=== PATIENT | female | born 1985 | race African-American/Black ===

== ENCOUNTER 2017-06-08 16:46 | Emergency (ER) | payer MEDICAID ==
[~2017-06-08] VITALS: Ht 162.6 cm; Wt 80.0 kg
[~2017-06-08 16:46] MED LIST: HYDR-3533 PO; METR-1 PO
[2017-06-08 16:50] VITALS: BP 198/94; PULSE 85; RESP 14; TEMP 98.6; O2SAT 99
[2017-06-08 18:37] VITALS: BP 204/93; PULSE 74; RESP 18; TEMP 98.4; O2SAT 99
--- NOTE | 2017-06-08 18:40 | PD ---
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 Pain is cramping. Intermittent. Moderate. Patient states that her menstrual cycle ended May 26 this is not her typical menstrual cycle. Denies chance of . Denies fever or chills. No urinary symptoms. No other symptoms to report. PFSH Past Medical History Asthma: Yes (as a child) Diminished Hearing: No Reproductive: Yes (TRICHOMONAS) Immunizations Current: No Tetanus Vaccination: Unknown Influenza Vaccination: No ?: Not LMP: 05/26/17 : 2 Para: 1 Miscarriage: 1 Past Surgical History Surgical History: No Previous Surgery Section: Yes Social History Alcohol Use: Yes (OCCASIONALLY) Tobacco Use: Yes (1 DAILY) Substance Use: No Allergies-Medications (Allergen,Severity, Reaction): Coded Allergies: erythromycin base (Unverified Allergy, Severe, Rash, 06/08/17) penicillin G (Unverified Allergy, Severe, Rash, 06/08/17) Reported Meds & Prescriptions Reported Meds & Active Scripts Active Flagyl (Metronidazole) 500 Mg Tab 500 Mg PO BID 7 Days Review of Systems Except as stated in HPI: all other systems reviewed are Neg Physical Exam Narrative GENERAL: Well-nourished female patient, in no acute distress SKIN: Focused skin assessment warm/dry. HEAD: Atraumatic. Normocephalic. EYES: Pupils equal and round. No scleral icterus. No injection or drainage. ENT: No nasal bleeding or discharge. Mucous membranes pink and moist. NECK: Trachea midline. No JVD. CARDIOVASCULAR: Regular rate and rhythm. No murmur appreciated. RESPIRATORY: No accessory muscle use. Clear to auscultation. Breath sounds equal bilaterally. GASTROINTESTINAL: Abdomen soft, distended. Suprapubic tenderness to palpation.. Hepatic and splenic margins not palpable. GENITOURINARY: Normal external genitalia without lesions or erythema. Vaginal vault with a watery a brown discharge. Os was closed similar drainage. No cervical motion tenderness. Uterus nontender and nonenlarged. Bilateral adnexa nontender without masses. MUSCULOSKELETAL: No obvious deformities. No clubbing. No cyanosis. No edema. NEUROLOGICAL: Awake and alert. No obvious cranial nerve deficits. Motor grossly within normal limits. Normal speech. Data Data Last Documented VS Vital Signs Date Time Temp Pulse Resp B/P (MAP) Pulse Ox O2 Delivery O2 Flow Rate FiO2 06/08/17 18:37 98.4 74 18 204/93 (130) 99 Room Air Orders Orders Urinalysis - C+S If Indicated (06/08/17 18:49) Ed Urine Pregnancytest Poc (06/08/17 18:49) Wet Prep Profile (06/08/17 18:49) Gc And Chlamydia Pcr (06/08/17 18:49) Labs Laboratory Tests Test 06/08/17 18:30 06/08/17 19:30 Urine Color LIGHT-YELLOW Urine Turbidity CLEAR Urine pH 7.0 Urine Specific [place] 1.008 Urine Protein NEG mg/dL Urine Glucose (UA) NEG mg/dL Urine Ketones NEG mg/dL Urine Occult Blood MOD Urine Nitrite NEG Urine Bilirubin NEG Urine Urobilinogen LESS THAN 2.0 MG/DL Urine Leukocyte Esterase NEG Urine RBC 1 /hpf Urine WBC 3 /hpf Urine Squamous Epithelial Cells 1 /hpf Microscopic Urinalysis Comment CULT NOT INDICATED Clue Cells (Wet Prep) PRESENT Vaginal Trichomonas (Wet Prep) NONE SEEN Vaginal Yeast (Wet Prep) NONE SEEN MDM Medical Decision Making Medical Screen Exam Complete: Yes Emergency Medical Condition: Yes Medical Record Reviewed: Yes Differential Diagnosis BV versus STD versus UTI versus PID Narrative Course 32-year-old female presents to emergency department for evaluation of suprapubic pain and vaginal bleeding. Patient has a brown henry discharge noted of her vaginal vault. Laboratory Tests Test 06/08/17 18:30 06/08/17 19:30 Urine Color LIGHT-YELLOW Urine Turbidity CLEAR Urine pH 7.0 Urine Specific [place] 1.008 Urine Protein NEG mg/dL Urine Glucose (UA) NEG mg/dL Urine Ketones NEG mg/dL Urine Occult Blood MOD Urine Nitrite NEG Urine Bilirubin NEG Urine Urobilinogen LESS THAN 2.0 MG/DL Urine Leukocyte Esterase NEG Urine RBC 1 /hpf Urine WBC 3 /hpf Urine Squamous Epithelial Cells 1 /hpf Microscopic Urinalysis Comment CULT NOT INDICATED Clue Cells (Wet Prep) PRESENT Vaginal Trichomonas (Wet Prep) NONE SEEN Vaginal Yeast (Wet Prep) NONE SEEN Patient is treated for trichomonas. She'll be treated empirically for gonorrhea and chlamydia. She is counseled states sex practices and agrees to return immediately with any acute worsening symptoms. Diagnosis Primary Impression: Bacterial vaginosis Referrals: Cardiac Rehabilitation Specialist Primary Care Physician Patient Instructions: Bacterial Vaginosis (ED), General Instructions Additional Instructions: Follow-up with a aws architect Return immediately with any acute worsening of symptoms Med/Other Pt SpecificInfo: Prescription(s) given Scripts Metronidazole (Flagyl) 500 Mg Tab 500 MG PO BID for Infection for 7 Days, #14 TAB 0 Refills Prov: Staci Wang 06/08/17 Disposition: 01 DISCHARGE HOME Condition: Stable Staci Wang Jun 08, 2017 18:40
[2017-06-08 19:18] LABS: BLOOD, URINE MOD (NEG); GLUCOSE,URINE NEG (NEG); KETONE, URINE NEG (NEG); NITRITE,URINE NEG (NEG); SQUAMOUS EPITHELIAL CELL URINE 1 /hpf (0-5); URINE COLOR LIGHT-YELLOW (YELLW/STRAW)
[2017-06-08 19:20] LABS: COMMENT (UR) CULT NOT INDICATED; CULTURE IF INDICATED CULT NOT INDICATED
[2017-06-08] MEDS ORDERED: METR-1 PO (20:07)
[2017-06-08] MEDS ORDERED: AZITHROMYCIN 250 MG TAB PO ONE (20:15)
[2017-06-08] MEDS ORDERED: LIDOCAINE HCL 1% 50 ML VIAL XX ONE (20:15)
[2017-06-08] MEDS ORDERED: cefTRIAXone 250 MG VIAL IM ONE (20:15)
[2017-06-08 23:27] LABS: CHLAMYDIA PCR NOT DETECTED (NOT DETECT); NEISSERIA PCR NOT DETECTED (NOT DETECT)
== END 2017-06-08 20:45 | disposition home or self-care (01) ==
LOC: NEPD 16:46
DX: N76.0 Acute vaginitis (principal)
CPT/HCPCS: 81001; 84703; 87210; 87491; 87591; 96372; 99284; J0696

== ENCOUNTER 2017-06-13 15:33 | Observation (INO) | payer MEDICAID ==
[~2017-06-13] VITALS: Ht 162.6 cm; Wt 85.0 kg
[2017-06-13] VITALS (9 sets, daily range): BP systolic 167–233; BP diastolic 80–106; PULSE 66–77; RESP 14–18; TEMP 98.4–99; O2SAT 97–100
[~2017-06-13 15:33] MED LIST changes: -HYDR-3533 PO
--- NOTE | 2017-06-13 15:47 | PD ---
Physical Exam Date Seen by Provider: Jun 13, 2017 Time Seen by Provider: 15:46 Narrative 32 yo female here for evaluation of chest pressure. has had it since 2 today. Not getting better. Sharp. Some SOB. No cardiac history on patient. BP highly elevated. Vitals show hypertension in the 200s systolic. Awaiting bed placement. Data Data Last Documented VS Vital Signs Date Time Temp Pulse Resp B/P (MAP) Pulse Ox O2 Delivery O2 Flow Rate FiO2 06/13/17 15:35 98.4 76 14 233/106 (148) 97 Orders Orders Electrocardiogram (06/13/17 15:45) Chest, Single Ap (06/13/17 ) MDM Medical Record Reviewed: Yes Supervised Visit with YOANDY: No Henry Wilkes Jun 13, 2017 15:47
[2017-06-13 16:26] LABS: AUTOMATED NEUTROPHIL # 6.8 TH/MM3 (1.8-7.7); BASOPHIL # 0.1 TH/MM3 (0-0.2); BASOPHIL % 0.6 % (0.0-2.0); EOSINOPHIL # 0.2 TH/MM3 (0-0.4); EOSINOPHIL % 1.9 % (0.0-4.0); HEMATOCRIT 33.4 % (35.0-46.0); HEMO FLAGS DIFF FINAL; LYMPH % 25.6 % (9.0-44.0); LYMPHOCYTE # 2.7 TH/MM3 (1.0-4.8); MEAN CORPUSCULAR HEMOGLOBIN 21.1 PG (27.0-34.0); MEAN CORPUSCULAR HGB CONC 31.5 % (32.0-36.0); NEUT % 64.9 % (16.0-70.0); PLATELET COUNT 418 TH/MM3 (150-450); RED BLOOD COUNT 4.98 MIL/MM3 (4.00-5.30); RED CELL DISTRIBUTION WIDTH 17.8 % (11.6-17.2); WHITE BLOOD COUNT 10.5 TH/MM3 (4.0-11.0)
[2017-06-13 16:54] LABS: ANION GAP 8 MEQ/L (5-15); BICARBONATE 22.5 MEQ/L (21.0-32.0); BLOOD UREA NITROGEN 9 MG/DL (7-18); CHLORIDE 107 MEQ/L (98-107); GLOMERULAR FILTRATION RATE 119 ML/MIN (>89); MAGNESIUM 2.3 MG/DL (1.5-2.5); POTASSIUM 3.4 MEQ/L (3.5-5.1); SODIUM (NA) 137 MEQ/L (136-145)
[2017-06-13 16:58] LABS: CREATINE KINASE 150 U/L (26-192)
[2017-06-13 17:10] LABS: CKMB 1.2 NG/ML (0.5-3.6)
--- NOTE | 2017-06-13 17:12 | RADRPT ---
EXAM DATE/TIME: 06/13/2017 16:22 [facility] COMPARISON: No previous studies available for comparison. INDICATIONS : Shortness of breath. MEDICAL HISTORY : None. SURGICAL HISTORY : None. ENCOUNTER: Initial ACUITY: 1 day PAIN SCORE: 0/10 LOCATION: Bilateral chest FINDINGS: PA and lateral views of the chest demonstrate the lungs to be symmetrically aerated without evidence of mass, infiltrate or effusion. The cardiomediastinal contours are unremarkable. Osseous structure s are intact. CONCLUSION: No acute disease. Tom Wright MD on June 13, 2017 at 17:10 Board Certified Radiologist. This report was verified electronically.
[2017-06-13] MEDS ORDERED: ASPIRIN 325 MG TAB PO ONE (17:45)
[2017-06-13] MEDS ORDERED: NITROGLYCERIN 0.4 MG SL 25 TABS/BTL SL ONE ×2 (17:45→19:00)
--- NOTE | 2017-06-13 17:47 | PD ---
HPI Chief Complaint: Chest Pain Time Seen by Provider: 17:33 Travel History International Travel<30 days: No Contact w/Intl Traveler<30days: No Traveled to known affect area: No History of Present Illness HPI 32-year-old female presents with central chest pressure that feels like a heaviness that is been present for the past day or so. She denies any associated symptoms with this. She denies recurrent history of this. She states she has been having elevated blood pressure readings for the past 10 years but her primary care physician did not want to start her on medication and just wanted to monitor it and she currently doesn't have a doctor at this time. She states she did not take an aspirin yet today. She denies prior cardiac workup. Quality is pressure. Severity is moderate. She denies specific modifying factors. Patient denies using control, long recent travel or PE risk factors such as family history or personal history of blood clots PFSH Past Medical History Medical History: Denies Significant Hx Asthma: Yes (as a child) Diminished Hearing: No Hypertension: Yes (elevated blood pressure for multiple years) Immunizations Current: No ?: Not LMP: 05/26/17 : 2 Para: 1 Miscarriage: 1 Past Surgical History Section: Yes Family History Family Myocardial Infarction: No Social History Alcohol Use: Yes (OCCASIONALLY) Tobacco Use: No (patient denies cigarette use to me) Substance Use: Yes (patient notes marijuana, denies IV drug abuse or cocaine) Allergies-Medications (Allergen,Severity, Reaction): Coded Allergies: erythromycin base (Unverified Allergy, Severe, Rash, 06/08/17) penicillin G (Unverified Allergy, Severe, Rash, 06/13/17) Reported Meds & Prescriptions Reported Meds & Active Scripts Active Flagyl (Metronidazole) 500 Mg Tab 500 Mg PO BID 7 Days Review of Systems Except as stated in HPI: all other systems reviewed are Neg Physical Exam Narrative GENERAL: Well-nourished, well-developed patient. SKIN: Warm and dry. HEAD: Normocephalic and atraumatic. EYES: No injection or drainage. ENT: No nasal drainage noted. NECK: Supple, trachea midline. CARDIOVASCULAR: Regular rate and rhythm RESPIRATORY: Breath sounds equal bilaterally. No accessory muscle use. GASTROINTESTINAL: Abdomen soft, non-tender, nondistended. EXTREMITIES: No edema. NEUROLOGICAL: Awake and alert. Motor and sensory grossly within normal limits. Normal speech. Data Data Last Documented VS Vital Signs Date Time Temp Pulse Resp B/P (MAP) Pulse Ox O2 Delivery O2 Flow Rate FiO2 06/13/17 17:58 71 18 186/103 (130) 100 Room Air 06/13/17 15:35 98.4 198/96 on recheck Orders Orders Electrocardiogram (06/13/17 15:45) Basic Metabolic Panel (Bmp) (06/13/17 16:05) Ckmb (Isoenzyme) Profile (06/13/17 16:05) Complete Blood Count With Diff (06/13/17 16:05) Magnesium (Mg) (06/13/17 16:05) Troponin I (06/13/17 16:05) Lipase (06/13/17 16:05) Chest, Pa & Lat (06/13/17 ) CKMB (06/13/17 16:16) CKMB% (06/13/17 16:16) Aspirin (Aspirin) (06/13/17 17:45) Nitroglycerin Sl (Nitrostat Sl) (06/13/17 17:45) Admit Order (Ed Use Only) (06/13/17 18:24) Labs Laboratory Tests Test 06/13/17 16:16 White Blood Count 10.5 TH/MM3 Red Blood Count 4.98 MIL/MM3 Hemoglobin 10.5 GM/DL Hematocrit 33.4 % Mean Corpuscular Volume 67.0 FL Mean Corpuscular Hemoglobin 21.1 PG Mean Corpuscular Hemoglobin Concent 31.5 % Red Cell Distribution Width 17.8 % Platelet Count 418 TH/MM3 Mean Platelet Volume 7.6 FL Neutrophils (%) (Auto) 64.9 % Lymphocytes (%) (Auto) 25.6 % Monocytes (%) (Auto) 7.0 % Eosinophils (%) (Auto) 1.9 % Basophils (%) (Auto) 0.6 % Neutrophils # (Auto) 6.8 TH/MM3 Lymphocytes # (Auto) 2.7 TH/MM3 Monocytes # (Auto) 0.7 TH/MM3 Eosinophils # (Auto) 0.2 TH/MM3 Basophils # (Auto) 0.1 TH/MM3 CBC Comment DIFF FINAL Differential Comment Blood Urea Nitrogen 9 MG/DL Creatinine 0.69 MG/DL Random Glucose 90 MG/DL Calcium Level 8.9 MG/DL Magnesium Level 2.3 MG/DL Sodium Level 137 MEQ/L Potassium Level 3.4 MEQ/L Chloride Level 107 MEQ/L Carbon Dioxide Level 22.5 MEQ/L Anion Gap 8 MEQ/L Estimat Glomerular Filtration Rate 119 ML/MIN Total Creatine Kinase 150 U/L Creatine Kinase MB 1.2 NG/ML Troponin I LESS THAN 0.02 NG/ML Lipase 117 U/L MDM Medical Decision Making Medical Screen Exam Complete: Yes Emergency Medical Condition: Yes Medical Record Reviewed: Yes (past history confirmed) Interpretation(s) CBC & BMP Diagram 06/13/17 16:16 Calcium Level 8.9, Magnesium Level 2.3 Last 24 hours Impressions Chest X-Ray 06/13/17 0000 Signed Impressions: Service Date/Time: Tuesday, June 13, 2017 16:22 - CONCLUSION: No acute disease. Tom Wright MD EKG is sinus rhythm at [address] segment elevation or depression or consecutive T-wave inversion Differential Diagnosis Musculoskeletal, gastritis, cardiac, hypertensive urgency Narrative Course Blood work, EKG, chest x-ray reviewed from protocol ordered. Initial testing negative. Will order aspirin and nitroglycerin and patient agrees to observation Labs without emergent process, agrees to observation Diagnosis Primary Impression: Chest pain Qualified Codes: R07.9 - Chest pain, unspecified Admitting Information Admitting Physician Requests: Observation Minnie Serrano MD Jun 13, 2017 17:47
[2017-06-13] MEDS ORDERED: SODIUM CHLORIDE 0.9% FLUSH 10 ML FLUSH IV FLUSH PRN (18:45)
[2017-06-13 19:42] LABS: CREATINE KINASE 185 U/L (26-192)
[2017-06-13 22:59] LABS: CREATINE KINASE 148 U/L (26-192)
[2017-06-13] MEDS ORDERED: cloNIDine HCL 0.2 MG TAB PO ONE (23:45)
[2017-06-13] MEDS ORDERED: cloNIDine HCL 0.2 MG TAB PO PRN (23:45)
[2017-06-14] VITALS (7 sets, daily range): BP systolic 110–179; BP diastolic 56–86; PULSE 62–72; RESP 17–18; TEMP 98.4–98.9; O2SAT 97–100
[2017-06-14] MEDS: SODIUM CHLORIDE 0.9% FLUSH 10 ML FLUSH IV FLUSH SCH ×2 (00:21→08:45)
--- NOTE | 2017-06-14 11:06 | HHI.DCPOC ---
Discharge Care Plan Diagnosis: (1) Chest pain Goals to Promote Your Health FOLLOW LOW SODIUM DIET. MONITOR ANR RECORD BLOOD PRESSURE READINGS AND FOLLOW UP WITH PRIMARY CARE PHYSICIAN. * To prevent worsening of your condition and complications * To maintain your health at the optimal level Directions to Meet Your Goals Take your medications as prescribed Follow your dietary instruction Follow activity as directed Keep your appointments as scheduled Take your immunizations and boosters as scheduled If your symptoms worsen call your PCP, if no PCP go to Urgent Care Center or Emergency Room Smoking is Dangerous to Your Health. Avoid second hand smoke Call the 24-hour hour crisis hotline for domestic abuse at Barry Gentile Jun 14, 2017 11:05
--- NOTE | 2017-06-14 12:13 | HHI.HP ---
HPI Primary Care Physician No Primary Care Physician Chief Complaint Chest pain History of Present Illness This is a 32-year-old female that presents to ED via private vehicle complaining of a chest tightness that began yesterday while she was at work. She checked her blood pressure was to not of her 17. Is a left side of her chest. Last about 3 hours. She never had this before. Denies history of hypertension. Denies any recent illnesses. Denies fevers or chills. States she adds a lot of salt to her food also believe she eats foods it already having a lot of salt in them. Review of Systems General: Patient denies fevers, chills recent, and recent travel HEENT: Patient denies headache, sore throat, difficulty swallowing. Cardiovascular: Has the chest discomfort as mentioned above. Denies sensation of heart beating rapidly or irregularly. No syncope. Denies diaphoresis. Respiratory: Denies shortness of breath or inspirational chest discomfort. Denies coughing wheezing or hemoptysis. GI: Patient denies nausea, vomiting, diarrhea, abdominal pain, bloody stools. Musculoskeletal: Patient denies joint pain or edema. Denies calf pain or edema. Neurovascular: Patient denies numbness, tingling, weakness in extremities. Denies headache. Endocrine: Denies polyuria and polydipsia. Hematologic: Denies easy bruising. Skin: Denies rash or itching. Past Family Social History Allergies: Coded Allergies: erythromycin base (Unverified Allergy, Severe, Rash, 06/13/17) penicillin G (Unverified Allergy, Severe, Rash, 06/13/17) Past Medical History Denies hypertension, hyperlipidemia, diabetes, and known CAD. Past Surgical History Noncontributory. Reported Medications Reported Meds & Active Scripts Active Flagyl (Metronidazole) 500 Mg Tab 500 Mg PO BID 7 Days Family History Denies family history of CAD. Social History Denies smoking. Denies alcohol. Occasional marijuana. Physical Exam Vital Signs Vital Signs Date Time Temp Pulse Resp B/P (MAP) Pulse Ox O2 Delivery O2 Flow Rate FiO2 06/14/17 11:18 152/86 (108) 06/14/17 10:24 179/85 (116) 06/14/17 08:11 64 06/14/17 07:12 98.4 66 18 134/75 (94) 100 10/11/17 04:17 62 06/14/17 03:16 98.9 62 17 110/56 (74) 97 06/14/17 00:46 72 06/13/17 23:15 99.0 72 17 172/92 (118) 100 06/13/17 22:21 77 06/13/17 22:14 99 06/13/17 20:28 98.7 72 17 190/92 (124) 100 06/13/17 20:18 06/13/17 20:15 66 18 167/80 (109) 100 Room Air 06/13/17 19:00 66 174/106 (128) 06/13/17 18:30 68 198/96 (130) 06/13/17 17:58 71 18 186/103 (130) 100 Room Air 06/13/17 17:27 99 Room Air 06/13/17 15:35 98.4 76 14 233/106 (148) 97 Physical Exam GENERAL: This is a well-nourished, well-developed patient, in no apparent distress. Patient speaks in clear complete sentences. Patient is pleasant. HEENT: Head is atraumatic and normocephalic. Neck is supple without lymphadenopathy and trachea is midline. No JVD or carotid bruits. CARDIOVASCULAR: Regular rate and rhythm without murmurs, gallops, or rubs. RESPIRATORY: Clear to auscultation. Breath sounds equal bilaterally. No wheezes , rales, or rhonchi. Chest wall is nontender. No use of accessory muscles. GASTROINTESTINAL: Abdomen is nontender, nondistended. Abdomen soft. No obvious pulsatile mass or bruit. No CVA tenderness. Strong femoral pulses bilaterally. Normal bowel sounds in all quadrants. MUSCULOSKELETAL: Patient is moving upper and lower extremities freely. No calf tenderness or edema, no Homans sign. Strong pulses in upper and lower extremities. NEUROLOGICAL: Patient is alert and oriented. Cranial nerves 2-12 are grossly intact. No focal deficits and speech is clear. SKIN: No rash and turgor is normal. Laboratory Laboratory Tests Test 06/13/17 16:16 06/13/17 18:50 06/13/17 22:05 White Blood Count 10.5 Red Blood Count 4.98 Hemoglobin 10.5 Hematocrit 33.4 Mean Corpuscular Volume 67.0 Mean Corpuscular Hemoglobin 21.1 Mean Corpuscular Hemoglobin Concent 31.5 Red Cell Distribution Width 17.8 Platelet Count 418 Mean Platelet Volume 7.6 Neutrophils (%) (Auto) 64.9 Lymphocytes (%) (Auto) 25.6 Monocytes (%) (Auto) 7.0 Eosinophils (%) (Auto) 1.9 Basophils (%) (Auto) 0.6 Neutrophils # (Auto) 6.8 Lymphocytes # (Auto) 2.7 Monocytes # (Auto) 0.7 Eosinophils # (Auto) 0.2 Basophils # (Auto) 0.1 CBC Comment DIFF FINAL Differential Comment Blood Urea Nitrogen 9 Creatinine 0.69 Random Glucose 90 Calcium Level 8.9 Magnesium Level 2.3 Sodium Level 137 Potassium Level 3.4 Chloride Level 107 Carbon Dioxide Level 22.5 Anion Gap 8 Estimat Glomerular Filtration Rate 119 Total Creatine Kinase 150 185 148 Creatine Kinase MB 1.2 1.0 1.0 Troponin I LESS THAN 0.02 LESS THAN 0.02 LESS THAN 0.02 Lipase 117 Result Diagram: 06/13/17 1616 06/13/17 1616 Imaging Last 48 hours Impressions Chest X-Ray 06/13/17 0000 Signed Impressions: Service Date/Time: Tuesday, June 13, 2017 16:22 - CONCLUSION: No acute disease. Tom Wright MD Course EKGs are sinus rhythm without significant ST segment depressions or elevations. Caprini VTE Risk Assessment Caprini VTE Risk Assessment: No/Low Risk (score <= 1) Caprini Risk Assessment Model Point Value = 1 Point Value = 2 Point Value = 3 Point Value = 5 Age 41-60 Minor surgery BMI > 25 kg/m2 Swollen legs Varicose veins or History of unexplained or recurrent spontaneous Oral contraceptives or hormone replacement Sepsis (< 1 month) Serious lung disease, including pneumonia (< 1 month) Abnormal pulmonary function Acute myocardial infarction Congestive heart failure (< 1 month) History of inflammatory bowel disease Medical patient at bed rest Age 61-74 Arthroscopic surgery Major open surgery (> 45 min) Laparoscopic surgery (> 45 min) Malignancy Confined to bed (> 72 hours) Immobilizing plaster cast Central venous access Age >= 75 History of VTE Family history of VTE Factor V Leiden Prothrombin [id number] Lupus anticoagulant Anticardiolipin antibodies Elevated serum homocysteine Heparin-induced thrombocytopenia Other congenital or acquired thrombophilia Stroke (< 1 month) Elective arthroplasty Hip, pelvis, or leg fracture Acute spinal cord injury (< 1 month) Prophylaxis Regimen Total Risk Factor Score Risk Level Prophylaxis Regimen 0-1 Low Early ambulation 2 Moderate Order ONE of the following: *Sequential Compression Device (SCD) *Heparin 5000 units SQ BID 3-4 Higher Order ONE of the following medications: *Heparin 5000 units SQ TID *Enoxaparin/Lovenox 40 mg SQ daily (WT < 150 kg, CrCl > 30 mL/min) *Enoxaparin/Lovenox 30 mg SQ daily (WT < 150 kg, CrCl > 10-29 mL/min) *Enoxaparin/Lovenox 30 mg SQ BID (WT < 150 kg, CrCl > 30 mL/min) AND/OR *Sequential Compression Device (SCD) 5 or more Highest Order ONE of the following medications: *Heparin 5000 units SQ TID (Preferred with Epidurals) *Enoxaparin/Lovenox 40 mg SQ daily (WT < 150 kg, CrCl > 30 mL/min) *Enoxaparin/Lovenox 30 mg SQ daily (WT < 150 kg, CrCl > 10-29 mL/min) *Enoxaparin/Lovenox 30 mg SQ BID (WT < 150 kg, CrCl > 30 mL/min) AND *Sequential Compression Device (SCD) Assessment and Plan Assessment and Plan * Chest pain: Patient has had serial cardiac enzymes and EKGs for ruling out purposes and has been seen by Dr. Shiva Brown of cardiology in the chest pain center. She will undergo a Prashant protocol ETT and be discharged if this is nonischemic. She should monitor and record her blood pressure readings and follow-up with PCP. Follow low-sodium diet. Patient is stable at this time. She is agreeable to this plan. Barry Gentile Jun 14, 2017 12:13
--- NOTE | 2017-06-14 15:47 | EKG ---
Date Performed: 06/13/2017 Time Performed: 21:28:47 PTAGE: 32 years EKG: Sinus rhythm WITH FIRST DEGREE AV BLOCK ABNORMAL ECG PREVIOUS TRACING : 06/13/2017 19.03 Since previous tracing, no significant change noted DOCTOR: Shiva Brown Interpretating Date/Time 06/14/2017 15:45:49
--- NOTE | 2017-06-14 15:49 | EKG ---
Date Performed: 06/13/2017 Time Performed: 19:03:33 PTAGE: 32 years EKG: Sinus rhythm WITH SINUS ARRHYTHMIA WITH FIRST DEGREE AV BLOCK POSSIBLE RIGHT VENTRICULAR CONDUCTION DELAY ABNORMA L ECG PREVIOUS TRACING : 06/13/2017 15.56 Since previous tracing, no significant change noted DOCTOR: Shiva Brown Interpretating Date/Time 06/14/2017 15:47:22
--- NOTE | 2017-06-14 15:50 | EKG ---
Date Performed: 06/13/2017 Time Performed: 15:56:46 PTAGE: 32 years EKG: Sinus rhythm WITH FIRST DEGREE AV BLOCK INCOMPLETE RIGHT BUNDLE BRANCH BLOCK ABNORMAL ECG NO PREVIOUS TRACING DOCTOR: Shiva Brown Interpretating Date/Time 06/14/2017 15:49:20
--- NOTE | 2017-06-14 15:54 | TR ---
Date Performed: 06/14/2017 Time Performed: 10:35:47 DOCTOR: Shiva Brown DRUG LIST: CLINICAL HISTORY: CHEST PAIN REASON FOR TEST: REASON FOR ENDING: OBSERVATION: CONCLUSION: VIVIENNE PROTOCOL. NO CP. TEST STOPPED AFTER EXCEEDING GOAL HR SECONDARY TO SOB AND LEG FATIGUE.Maximum LL=564 % Max HR Achieved=89.0% Maximum ND=531/78 Total Exercise Time=7:31 COMMENTS: Patient exercised using the Vivienne protocol. No electrocardiographic changes were seen to suggest ischemia. Hemodynamic response to exercise was normal. No significant arrhythmia was prese nt.
== END 2017-06-14 11:34 | disposition home or self-care (01) ==
LOC: NEPC 15:33 → NEDA 18:25 → NEPFCDU 20:21
PROVIDERS: ADMIT Internal Medicine Interventional Cardiology; ATTEND Internal Medicine Interventional Cardiology
DX: R07.9 Chest pain, unspecified (principal); R06.02 Shortness of breath; I10 Essential (primary) hypertension; I44.0 Atrioventricular block, first degree; R94.31 Abnormal electrocardiogram [ECG] [EKG]; I45.10 Unspecified right bundle-branch block; F12.90 Cannabis use, unspecified, uncomplicated
CPT/HCPCS: 71020; 80048; 82550; 82552; 83690; 83735; 84484; 85025; 93005; 93017; 99285; G0378